=== PATIENT | female | born 1960 | race Caucasian/White ===

== ENCOUNTER 2020-03-25 08:27 | Outpatient (REF) | payer SELFPAY | END 2020-03-25 08:28 | disposition home or self-care (01) | LOC: HO.HAP 08:27 | PROVIDERS: Visit Provider Family Medicine | DX: Z13.89 Encounter for screening for other disorder (principal) | CPT/HCPCS: 92700 ==

== ENCOUNTER 2020-05-04 11:55 | Outpatient (REF) | payer SELFPAY | END 2020-05-04 11:56 | disposition home or self-care (01) | LOC: HO.HAP 11:55 | PROVIDERS: PCP Family Medicine; Visit Provider Family Medicine | DX: Z46.1 Encounter for fitting and adjustment of hearing aid (principal); H90.3 Sensorineural hearing loss, bilateral | CPT/HCPCS: V5264 ==

== ENCOUNTER 2021-03-21 15:58 | Outpatient (REF) | payer SELFPAY | END 2021-03-21 15:59 | disposition home or self-care (01) | LOC: HO.HAP 15:58 | PROVIDERS: Visit Provider Family Medicine | DX: Z13.89 Encounter for screening for other disorder (principal) ==

== ENCOUNTER 2021-10-12 14:44 | Outpatient (REF) | payer SELFPAY | END 2021-10-12 14:45 | disposition home or self-care (01) | LOC: HO.HAP 14:44 | PROVIDERS: Visit Provider Family Medicine | DX: Z46.1 Encounter for fitting and adjustment of hearing aid (principal); H90.3 Sensorineural hearing loss, bilateral | CPT/HCPCS: 99499 ==

== ENCOUNTER 2022-04-05 15:30 | Outpatient (REF) | payer SELFPAY | END 2022-04-05 15:31 | disposition home or self-care (01) | LOC: HO.HAP 15:30 | PROVIDERS: Visit Provider Family Medicine | DX: Z46.1 Encounter for fitting and adjustment of hearing aid (principal); H90.3 Sensorineural hearing loss, bilateral | CPT/HCPCS: 92700; V5299 ==

== ENCOUNTER 2023-06-06 22:34 | Emergency (ER) | payer OTHER, SELFPAY ==
[2023-06-06 22:39] VITALS: BP 120/71; PULSE 70; O2SAT 99
[2023-06-06 22:43] VITALS: BP 133/51; PULSE 67; RESP 20; TEMP 36.6; O2SAT 100; BMI 24.3
[2023-06-06 23:25] LABS: Basophils Percent Auto 0.2 % (0-2); Eosinophils Absolute Auto 0.1 X10*3/uL (0.0-0.4); Eosinophils Percent Auto 0.4 % (0-4); Hematocrit 38.5 % (37.0-47.0); Imm Gran Abs Auto 0.06 X10*3/uL (0.00-0.03); Imm Gran Pct Auto 0.5 % (0.0-0.4); Lymphocytes Absolute Auto 0.7 X10*3/uL (1.2-4.9); Lymphocytes Percent Auto 5.3 % (20-40); MANUAL DIFF FLAG NO; Mean Corpuscular HGB Conc 33.8 g/dl (31.0-35.0); Mean Corpuscular Hemoglobin 31.7 pg (27.0-33.0); Mean Corpuscular Volume 93.9 fL (80.0-98.0); Monocytes Absolute Auto 1.1 X10*3/uL (0.1-1.2); Monocytes Percent Auto 9.1 % (2-11); Neutrophils Absolute Auto 10.6 x10*3/uL (2.0-8.3); Neutrophils Percent Auto 84.5 % (45-73); Platelet Count 263 X10*3/uL (160-400); Red Cell Distribution Width 13.1 % (11.0-16.0); White Blood Count 12.5 X10*3/uL (4.8-10.8)
[2023-06-06] MEDS: ondansetron HCL 4 MG/2 ML VIAL IVPUSH (23:27)
[2023-06-06] MEDS: 0.9 % Sodium Chloride 1,000 ML 999 ML IV (23:27)
[2023-06-06 23:34] LABS: Influenza A PCR NEGATIVE (Negative); Influenza B PCR NEGATIVE (Negative); Resp Syncy Virus RNA Qual PCR NEGATIVE (Negative); SARS COV2 PCR INHOUSE POSITIVE (Negative)
[2023-06-06 23:40] LABS: Alanine Aminotransferase 13 U/L (0-31); Albumin Level 4.1 g/dL (3.5-5.0); Alkaline Phosphatase 95 U/L (39-117); Anion Gap 10 (12-20); Aspartate Amino Transferase 14 U/L (5-31); Bilirubin Total 0.3 mg/dL (0.0-1.0); Blood Urea Nitrogen 12 mg/dL (9-16); Calcium 8.7 mg/dL (8.4-10.2); Carbon Dioxide 23 mmol/L (22-29); Chloride 107 mmol/L (96-108); Creatinine Clr Calc Pharmacy 99.3; Estimated Glomerular Filt Rate > 60; Glucose Random 101 mg/dL (60-115); Lipase 24 U/L (8-78); Magnesium 1.8 mg/dL (1.6-2.6); Potassium 3.8 mmol/L (3.3-5.1); Sodium 136 mmol/L (135-145); Total Protein 7.3 g/dL (6.5-8.0)
--- NOTE | 2023-06-07 00:10 | PC.NURSE ---
pt reporting nausea is better but has had multiple episodes of diarrhea since arrival. MD aware
--- NOTE | 2023-06-07 00:20 | PC.NURSE ---
pt did not want immodium for diarrhea, stated her stomach is sensitive and it will just make her constipated and this will pass.
--- NOTE | 2023-06-07 00:41 | ED.NAVMDI ---
HPI - Nausea/Vomiting/Diarrhea General Chief complaint: Nausea/Vomiting/Diarrhea Stated complaint: NVD x24 hours, COVID+, unable to consume food/drin Time Seen by Provider: 06/06/23 22:41 Source: patient Mode of arrival: ambulatory Limitations: no limitations History of Present Illness HPI Narrative: Patient work in the [employer] [facility] [employer] been sick since last night with nausea and vomiting and diarrhea had multiple episodes unable take any p.o. fluids since morning feels weak and tired more vomiting than diarrhea no other family member sick tested positive for COVID yesterday no upper respiratory symptoms no cough no shortness of breath no fever or chills Related Data Previous Rx's Medication Instructions Recorded loperamide 2 mg tablet (Imodium 2 mg PO Q6H PRN loose stool #14 06/07/23 A-D) tabs ondansetron 4 mg disintegrating 4 mg PO Q6-8H PRN nausea and 06/07/23 tablet vomiting #10 tabs Allergies Allergy/AdvReac Type Severity Reaction Status Date / Time diazepam [From VALIUM] Allergy Unknown SUICIDAL Verified 06/06/23 22:45 penicillin V Allergy Unknown rash Verified 06/06/23 22:45 Penicillins [PENICILLINS] Allergy Unknown HIVES Verified 06/06/23 22:45 ANTIDEPRESSANTS Allergy Unknown SUICIDAL Uncoded 02/25/20 16:16 Review of Systems Review of Systems: Yes all other systems are reviewed and are negative [facility] Social History Social History Smoked in Last 30 Days: No Use of substances other than those prescribed or required for medical reasons: No Patient : No Physical Exam Vital Signs: Vital Signs: Last Vital Signs Temp 97.9 F 06/07/23 01:13 Pulse 73 06/07/23 01:13 Resp 20 06/07/23 01:13 BP 117/67 06/07/23 01:13 Pulse Ox 97 06/07/23 01:13 O2 Del Method Room Air 06/07/23 01:13 BMI result Body Mass Index 24.3 Appearance: Alert. Oriented X3. Looks sick. Eyes: No pallor or icterus ENT: Pharynx normal. Oral Mucosa moist Neck: Normal inspection. Neck supple. CVS: Normal heart rate and rhythm. Pulses normal. Respiratory: No respiratory distress. Equal air entry bilateral, no wheezing/rales/rhonchi Abdomen: Soft and nontender. Bowel sounds are present, no mass palpable, no CVA tenderness Skin: Skin warm and dry. Normal skin color. Normal skin turgor. Extremities: No lower extremity edema. No calf tenderness Neuro: Oriented X 3. Medications Administered Discontinued Medications Generic Name Dose Route Start Last Admin Trade Name Freq PRN Reason Stop Dose Admin Dicyclomine HCl 20 mg 06/07/23 01:02 06/07/23 01:11 Dicyclomine Hcl 10 Mg Capsule PO 06/07/23 01:03 20 mg ONCE ONE Administration Sodium Chloride 1,000 mls @ 999 mls/hr 06/06/23 23:08 06/07/23 00:20 Ns IV 06/07/23 00:08 Infused .Q1H1M ONE Infusion Loperamide HCl 4 mg 06/07/23 00:09 06/07/23 00:20 Loperamide Hcl 2 Mg Capsule PO 06/07/23 00:10 Not Given ONCE ONE Ondansetron HCl 4 mg 06/06/23 23:08 06/06/23 23:27 Ondansetron Hcl 4 Mg/2 Ml Vial IVPUSH 06/06/23 23:09 4 mg ONCE ONE Administration Ondansetron HCl 4 mg 06/07/23 01:02 06/07/23 01:08 Ondansetron Hcl 4 Mg/2 Ml Vial IVPUSH 06/07/23 01:03 4 mg ONCE ONE Administration Medical Decision Making Medical Decision Making [facility] Narrative: Patient with COVID with GI symptoms with benign abdomen received IV fluids feeling much better now taking p.o. fluids will discharge patient home Differential Diagnosis Differential Diagnoses: The differential diagnosis associated with the presentation includes Gastroenteritis/COVID/food poisoning Lab Data [facility] Lab Attestation statement: I reviewed the patient's lab results. 06/06/23 23:18 06/06/23 23:18 Labs: Lab Results 06/06/23 06/06/23 Range/Units 22:53 23:18 WBC 12.5 H (4.8-10.8) X10*3/uL RBC 4.10 L (4.20-5.50) X10*6/uL Hgb 13.0 (12.0-16.0) g/dl Hct 38.5 (37.0-47.0) % MCV 93.9 (80.0-98.0) fL MCH 31.7 (27.0-33.0) pg MCHC 33.8 (31.0-35.0) g/dl RDW 13.1 (11.0-16.0) % Plt Count 263 (160-400) X10*3/uL MPV 9.0 L (9.4-12.3) fL Immature Gran % (Auto) 0.5 H (0.0-0.4) % Neut % (Auto) 84.5 H (45-73) % Lymph % (Auto) 5.3 L (20-40) % [place] % (Auto) 9.1 (2-11) % Eos % (Auto) 0.4 (0-4) % Baso % (Auto) 0.2 (0-2) % Lymph # (Auto) 0.7 L (1.2-4.9) X10*3/uL [place] # (Auto) 1.1 (0.1-1.2) X10*3/uL Eos # (Auto) 0.1 (0.0-0.4) X10*3/uL Baso # (Auto) 0.0 (0.0-0.2) X10*3/uL Abs Immat Gran (auto) 0.06 H (0.00-0.03) X10*3/uL Absolute Neuts (auto) 10.6 H (2.0-8.3) x10*3/uL Absolute Nucleated RBC 0.000 (0.0-0.012) X10*3/uL Nucleated RBC % (auto) 0.0 (0.0-0.2) /100WBC Sodium 136 (135-145) mmol/L Potassium 3.8 (3.3-5.1) mmol/L Chloride 107 (96-108) mmol/L Carbon Dioxide 23 (22-29) mmol/L Anion Gap 10 L (12-20) BUN 12 (9-16) mg/dL Creatinine 0.60 (0.5-1.4) mg/dL Estim Creat Clear Calc 99.3 Estimated GFR > 60 Random Glucose 101 (60-115) mg/dL Calcium 8.7 (8.4-10.2) mg/dL Magnesium 1.8 (1.6-2.6) mg/dL Total Bilirubin 0.3 (0.0-1.0) mg/dL AST 14 (5-31) U/L ALT 13 (0-31) U/L Alkaline Phosphatase 95 (39-117) U/L Total Protein 7.3 (6.5-8.0) g/dL Albumin 4.1 (3.5-5.0) g/dL Lipase 24 (8-78) U/L Influenza Type A (PCR) NEGATIVE (Negative) Influenza Type B (PCR) NEGATIVE (Negative) RSV RNA Qual (PCR) NEGATIVE (Negative) SARS-CoV-2 RNA (RT-PCR) POSITIVE A (Negative) Discharge Plan Discharge Clinical Impression: Gastroenteritis, COVID-19 Patient Disposition: Home, Self-Care Instructions: Gastroenteritis (ED), COVID-19 (Coronavirus Disease 2019) (ED) Additional Instructions: Drink plenty of fluids Med for nausea and severe diarrhea as prescribed Social distancing as advised Follow with PCP if not better Prescriptions: New loperamide [Imodium A-D] 2 mg tablet 2 mg PO Q6H PRN (Reason: loose stool) Qty: 14 0RF ondansetron 4 mg tablet,disintegrating 4 mg PO Q6-8H PRN (Reason: nausea and vomiting) Qty: 10 0RF
[2023-06-07] MEDS: ondansetron HCL 4 MG/2 ML VIAL IVPUSH (01:08)
[2023-06-07] MEDS: Dicyclomine HCl 10 MG CAPSULE 20 MG PO (01:11)
[2023-06-07 01:13] VITALS: BP 117/67; PULSE 73; RESP 20; TEMP 36.6; O2SAT 97
== END 2023-06-07 01:47 | disposition home or self-care (01) ==
PROVIDERS: Emergency Provider Internal Medicine
DX: U07.1 COVID-19 (principal); K52.9 Noninfective gastroenteritis and colitis, unspecified; R11.2 Nausea with vomiting, unspecified; Z20.828 Contact with and (suspected) exposure to other viral communicable diseases
CPT/HCPCS: 0241U; 36415; 80053; 83690; 83735; 85025; 96361; 96374; 96376; 99284; J2405